=== PATIENT | female | born 1960 | race Caucasian/White ===

== ENCOUNTER → 2017-09-15 | Outpatient (CLI) | payer OTHER ==
[~2017-09-15] MED LIST: ALLEGRA30 MG PO; DESYREL150 MG PO; IBUPROFEN 800800 MG PO; NORCO 5-325 TA1 EACH PO; PROZAC40 MG PO; XANAX 0.5 MG0.5 MG PO
== END ==
LOC: M.RAD 09:24
DX: Z12.31 Encounter for screening mammogram for malignant neoplasm of breast (principal)